=== PATIENT | female | born 1980 | race Asian ===

== ENCOUNTER 2020-09-07 18:32 | Emergency (ER) | payer SELFPAY ==
[~2020-09-07] VITALS: Ht 149.9 cm; Wt 45.0 kg
[~2020-09-07 18:32] MED LIST: PNV1TABL25 PO
[2020-09-07] MEDS ORDERED: AMOXICILLIN/K CLAV 875/125MG TABLET. PO ONE (19:45)
[2020-09-07] MEDS ORDERED: DEXAMETHASONE SOD PHOS 4 MG/ML VIAL IVP ONE (19:45)
[2020-09-07] MEDS ORDERED: KETOROLAC 15 MG/ML VIAL. IVP ONE (19:45)
[2020-09-07 20:13] LABS: BILIRUBIN,URINE NEGATIVE (NEG); CLARITY,URINE CLEAR; COLOR,URINE YELLOW; NITRITE,URINE NEGATIVE (NEG); PROTEIN,URINE NEGATIVE (NEG-TRACE); UROBILINOGEN,URINE 0.2 mg/dL (0.2 mg/dL)
[2020-09-07 20:17] LABS: BACTERIA,URINE 0 /HPF (0-FEW); RBC,URINE OCC /HPF (0-2); WBC,URINE 0 /HPF (0-4)
[2020-09-07 21:06] LABS: BASO % 0 % (0-3); EOS # 0.1 x10^3/uL (0.0-0.7); EOS % 1 % (0-3); HEMATOCRIT 40.5 % (36.0-47.0); LYMPH # 1.7 x10^3/uL (1.0-4.8); LYMPH % 24 % (24-48); MEAN CORPUSCULAR HEMOGLOBIN 31 pg (25-35); MEAN CORPUSCULAR HGB CONC 35 g/dL (31-37); MEAN CORPUSCULAR VOLUME 89 fL (79-100); MONO # 0.6 x10^3/uL (0.0-1.1); MONO % 8 % (0-9); NEUT # 4.6 x10^3/uL (1.8-7.7); NEUT % 66 % (31-73); PLATELET COUNT 198 x10^3/uL (140-400); RED BLOOD COUNT 4.58 x10^6/uL (3.50-5.40); WHITE BLOOD COUNT 6.9 x10^3/uL (4.0-11.0)
--- NOTE | 2020-09-07 21:06 | PHYS DOC ---
Past Medical History Past Medical History: No Pertinent History Past Surgical History: No Surgical History Smoking Status: Never Smoker Alcohol Use: None Drug Use: None General Adult EDM: Chief Complaint: DENTAL PROBLEM HPI: HPI: Patient is a 40 female who is [place] speaking presents with report of upper mol ar discomfort left greater than right that started today at approximately 1400. Patient reports upon returning home from work she became very weak and dizzy. Patient reports she has been having chills for the past few days. Denies any known fever. Patient does report her left-sided tooth ache radiates to her left yazidi. Patient does report headache. Denies nausea or vomiting. Patient reports family had all had fevers last week and had been tested for COVID but all had come back negative. Denies any known trauma. Denies . Denies known sick contacts. Review of Systems: Review of Systems: Constitutional: Denies fever or chills Eyes: Denies redness or eye pain HENT: Denies nasal congestion or sore throat; reports toothache Respiratory: Denies cough or shortness of breath Cardiovascular: Denies chest pain or palpitations GI: Denies abdominal pain, nausea, or vomiting : Denies dysuria or hematuria Musculoskeletal: Denies back pain or neck pain Integument: Denies rash or skin lesions Neurologic: Reports headache, generalized weakness, and dizziness; denies focal weakness or sensory changes Complete systems were reviewed and found to be within normal limits, except as documented in this note. Current Medications: Current Medications Medications (Trade) Dose Ordered Sig/[facility] Start Time Stop Time Status Last Admin Dose Admin Amoxicillin/ Clavulanate Potassium (Augmentin 875/ 125mg) 1 tab 1X ONCE 09/07/20 19:45 09/07/20 19:46 DC 09/07/20 20:26 1 TAB Dexamethasone Sodium Phosphate (Decadron) 10 mg 1X ONCE 09/07/20 19:45 09/07/20 19:46 DC 09/07/20 20:39 10 MG Ketorolac Tromethamine (Toradol 15mg Vial) 15 mg 1X ONCE 09/07/20 19:45 09/07/20 19:46 DC 09/07/20 20:39 15 MG Allergies: Allergies: Allergies Coded Allergies Type Severity Reaction Last Updated Verified No Known Allergies Allergy Unknown 09/13/14 No Physical Exam: PE: Constitutional: Well developed, well nourished, no acute distress, non-toxic appearance HENT: Normocephalic, atraumatic, dentalgia on palpation to left and right maxillary 1st molars, no drainable abscess noted Eyes: PERRL, EOMI, conjunctiva normal, no discharge Neck: Normal range of motion, no tenderness, supple Lungs & Thorax: No respiratory distress, equal chest rise and fall Abdomen: Soft, no tenderness Skin: Warm, dry, no erythema, no rash Extremities: No tenderness, ROM intact, no edema Neurologic: Alert and oriented X 3, normal motor function, normal sensory function, no focal deficits noted Psychologic: Affect normal, judgment normal Current Patient Data: Labs: Laboratory Tests Test 09/07/20 18:51 09/07/20 20:10 Urine Collection Type Unknown Urine Color Yellow Urine Clarity Clear Urine pH 8.0 (<5.0-8.0) Urine Specific [place] <=1.005 (1.000-1.030) Urine Protein Negative mg/dL (NEG-TRACE) Urine Glucose (UA) 100 mg/dL (NEG) Urine Ketones (Stick) Negative mg/dL (NEG) Urine Blood Negative (NEG) Urine Nitrite Negative (NEG) Urine Bilirubin Negative (NEG) Urine Urobilinogen Dipstick 0.2 mg/dL (0.2 mg/dL) Urine Leukocyte Esterase Negative (NEG) Urine RBC Occ /HPF (0-2) Urine WBC 0 /HPF (0-4) Urine Squamous Epithelial Cells Occ /LPF Urine Bacteria 0 /HPF (0-FEW) POC Urine HCG, Qualitative Hcg negative (Negative) Vital Signs: Vital Signs Date Time Temp Pulse Resp B/P (MAP) Pulse Ox O2 Delivery O2 Flow Rate FiO2 09/07/20 18:50 97.7 67 16 125/74 (91) 97 Room Air 97.7 EKG: EKG: @1957 NSR at 60bpm, NO ST elevation, QRS 88ms, QT/QTc 434/438ms Radiology/Procedures: Radiology/Procedures: PROCEDURE: PORTABLE CHEST 1V INDICATION: Reason: weakness / Spl. Instructions: / History: COMPARISON: None. FINDINGS: Single view of chest obtained. No definite focal airspace consolidation. There is some mild interstitial prominence. Cardiac silhouette unremarkable. IMPRESSION: * Mild interstitial prominence bilaterally. Would correlate with symptoms since causes such as bronchitis or a mild interstitial infiltrate can have this appearance. Mild pulmonary vascular congestion can also have this appearance but would be less common in a patient of this age unless they have known cardiovascular disease. Electronically signed by: Nitin Russo MD (09/07/2020 9:00 PM) Course & Med Decision Making: Course & Med Decision Making Pertinent Labs and Imaging studies reviewed. (See chart for details) Patient presents with report of generalized fatigue and malaise with associated maxillary dental pain with report of subjective chills. Cannot fully exclude COVID-19. COVID precautions in place. COVID testing pending. Patient neurologically intact. NIHSS 0. EKG stable. Labs obtained and posted to chart. Troponin WNL. Empiric antibiotic provided. Symptomatic treatment also given. Patient stable for discharge with outpatient follow-up with PCP/dentist. Dental resources provided. Discussed findings and plan with patient, who acknowledges understanding and agreement. COVID-19 CRITERIA: The patient was evaluated during the global COVID-19 pandemic, and that diagnosis was suspected/considered upon their initial presentation. Their evaluation, treatment and testing was consistent with curr ent guidelines for patients who present with complaints or symptoms that may be related to COVID-19. Cesar Disclaimer: Cesar Disclaimer: This electronic medical record was generated, in whole or in part, using a voice recognition dictation system. Departure Departure Impression: Primary Impression: Dentalgia Additional Impressions: Generalized weakness Suspected 2019 novel coronavirus infection Disposition: 01 DC HOME SELF CARE/HOMELESS Condition: STABLE Referrals: NO PCP (PCP) Patient Instructions: Toothache-Brief, Weakness, [id number] Additional Instructions: You have been tested for or diagnosed with COVID-19. It is an infection caused by a new type of coronavirus. COVID-19 will cause cold-like or mild flu symptoms in most. It can cause more severe symptoms like problems breathing in some. There is no treatment for COVID-19. The body will clear the infection over time. Self-care will help to ease discomfort. Steps to Take: Self-Care Rest as needed. Healthy habits may help you feel better. Steps include: Choose healthy foods including fruits and vegetables. Drink water throughout the day. Get plenty of sleep each night. If you smoke, try to quit. It may ease breathing. Avoid alcohol. Keep Others Healthy The virus can spread to others. Droplets are released every time you sneeze or cough. The droplets can get into the mouth, nose, or eyes of people near you and lead to infection. To lower the chances of spreading COVID-19 to others: Stay at home until your doctor has said it is safe to leave. If you tested positive this will mean staying isolated until both of the following are true: At least 7 days have passed since the start of illness. You are free of fever for at least 72 hours without the use of medicine. During this time: - Avoid public areas, events, or transportation. Do not return to work or school until your doctor has said it is safe to do so. - Call ahead if you need to go to a medical center. Let them know you may have COVID-19. It will help them guide you where to go. They may also ask you to wear a facemask when you come to the office. - If you call for emergency medical services, let them know you may have COVID- 19. While at home: - Try to avoid close contact with others. Stay about 6 feet away. - If possible, spend most of your time in a separate room from others. - Use a face mask if you will be in close contact with others such as sharing a room or vehicle. - Have someone wipe down common surfaces in the home. Use household station mechanic helper every day on areas like doorknobs, counters, or sinks. - Cough or sneeze into a tissue. Throw the tissue away right after use. If a tissue is not available, cough or sneeze into your elbow. - Wash your hands often. Wash them after sneezing or coughing. Use soap and water and wash for at least 20 seconds. Alcohol based hand leather cleaner can be used if soap and water is not available. - Do not prepare food for others. Avoid sharing personal items like forks, spoons, or toothbrushes. - Avoid close contact with pets while you are sick. There is no evidence of the virus passing to pets. This is a safety step until more is known about this virus. Isolation can be frustrating. Social interaction can help. Keep in touch with friends and family through phone and tech options. You can still interact with others in your home, just keep a safe distance of about 6 feet. Follow-up: Your doctors office will check in with you to see if there are any changes in your health. You may be asked to keep track of symptoms to share with them. They will also let you know when you are clear to be in public again. Problems to Look Out For: Contact your doctor if your recovery is not going as you expect. Get emergency care if you have problems such as: - Trouble breathing - Nonstop chest pain or pressure - Changes in awareness, confusion, or problems waking - Lips or face have bluish color - Worsening of symptoms If you think you have an emergency, call for emergency medical services right away. As taken from [facility] Chlorhexidine Gluconate (PERIDEX) 15 Ml Mouthwash 15 ML PO BID for 7 Days, #473 ML 0 Refills Prov: ISREAL SCOTT DO 09/07/20 Amoxicillin/Potassium Clav (AUGMENTIN 875-125 TABLET) 1 Each Tablet 1 TAB PO BID, #14 TAB Prov: ISREAL SCOTT DO 09/07/20 Naproxen (NAPROXEN) 375 Mg Tablet 375 MG PO TID PRN PRN for PAIN, #14 TAB Prov: ISREAL SCOTT DO 09/07/20 NIHSS Stroke Scale NIH Stroke Scale: NIH Stroke Scale Response (Comments) Value Level of Consciousness: 0 Alert/Responsive 0 LOC Questions: 0 Answers both correctly 0 LOC Commands: 0 Performs both tasks 0 Best Gaze: 0 Normal 0 Visual: 0 No visual loss 0 Facial Palsy: 0 Normal, symmetrical 0 Motor - Left Arm 0 No drift 0 Motor - Right Arm 0 No drift 0 Motor - Left Leg 0 No drift 0 Motor: Right Leg 0 No drift 0 Limb Ataxia: 0 Absent 0 Sensory: 0 No loss 0 Best Language: 0 Normal 0 Dysathria: 0 Normal 0 Extinction and Inattention: 0 Normal 0 Total 0 COVID-19 Assessment: COVID-19 Patient Risks: Age 65 or older: No Sign of co-morbidity: No Exp to person + for COVID: No Exp to PUI: No Travel from affected area: No Lower respiratory symptoms: No Fever: No Other: No PPE Use: Full PPE with N95 mask or PAPR: Yes ISREAL SCOTT DO Sep 07, 2020 21:06
[2020-09-07 21:15] LABS: CREATININE 0.6 mg/dL (0.6-1.0); GFR 111.3; POTASSIUM 3.5 mmol/L (3.5-5.1)
[2020-09-07 21:29] LABS: ALBUMIN 3.5 g/dL (3.4-5.0); ALBUMIN/GLOBULIN RATIO 0.8 (1.0-1.7); TOTAL BILIRUBIN 0.6 mg/dL (0.2-1.0); TOTAL PROTEIN 7.8 g/dL (6.4-8.2)
[2020-09-07 21:55] VITALS: BP 95/61
[2020-09-07] MEDS ORDERED: NAPR-695 PO (22:00)
[2020-09-07] MEDS ORDERED: CHLO15MO2 PO (22:00)
[2020-09-07] MEDS ORDERED: AMOX1TAB61 PO (22:00)
--- NOTE | 2020-09-08 11:56 | EKG ---
[facility] [address] [place] [id number] Test Date: 2020-09-07 Test Time: 19:57:36 Pat Name: KYRA VELIZ Department: Room: Gender: F Ms Sql Developer: : 1980 Requested By: ISREAL SCOTT Order Number: [id number] Reading MD: Measurements Intervals [place] Rate: 60 P: 34 WI: 112 QRS: 52 QRSD: 88 T: 25 QT: 434 QTc: 438 Interpretive Statements SINUS RHYTHM NORMAL ECG RI6.02 No previous ECG available for comparison
== END 2020-09-07 22:15 | disposition home or self-care (01) ==
LOC: ER 18:32
DX: K08.89 Other specified disorders of teeth and supporting structures (principal); Z20.828 Contact with and (suspected) exposure to other viral communicable diseases; R51.9 Headache, unspecified; R53.1 Weakness; R42 Dizziness and giddiness
CPT/HCPCS: 36415; 71045; 80053; 81001; 81025; 82553; 83605; 83735; 84484; 85025; 93005; 96374; 96375; 99285; J1100; J1885; U0003